=== PATIENT | female | born 1980 | race Two or more races ===

== ENCOUNTER → 2020-05-26 | Outpatient (CLI) | payer OTHER ==
[~2020-05-26] MED LIST: DOCU10CA PO; FOLI1TAB11 PO; IBUP80TA PO; IRON65TA PO; MAPA500T2 PO; PNV-CAP5 PO; VITAPRTA PO
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
== END ==
LOC: M PAIN 13:00
PROVIDERS: ATTEND Family Medicine
DX: M54.2 Cervicalgia (principal); F32.9 Major depressive disorder, single episode, unspecified; F41.9 Anxiety disorder, unspecified; F43.10 Post-traumatic stress disorder, unspecified; J30.9 Allergic rhinitis, unspecified; M54.5 Low back pain; Z79.899 Other long term (current) drug therapy

== ENCOUNTER 2021-06-15 09:44 | Day surgery (SDC) | payer OTHER ==
[~2021-06-15] VITALS: Ht 170.2 cm; Wt 80.3 kg
[~2021-06-15 09:44] MED LIST changes: +D31000CA4 PO; +EFFE150C2 PO; +EFFE75CA2 PO; +FLUTISP; +LINZ290C PO; +PRAZ5CAP PO
--- OUTSIDE RECORDS SUMMARY | 2021-06-15 09:51 | CCD | Continuity of Care Document ---
Author Author Michell CROWE M.D. Organization Unknown Address [address] [place] [id number] Phone [phone] Problems Active Problems Provider Date Migraine without aura, not refractory Kevin Crowe M.D. On set: 10/17/2020 Chronic tension-type headache Kevin Crowe M.D. Onset: 12/2020 Neck pain Kevin Crowe M.D. Onset: 10/17/2020 Spondylolysis of cervical spine Kevin Crowe M.D. Onset: 0 10/17/2020 Lesion of ulnar nerve Kevin Crowe M.D. Onset: 10/17/2020 Social History Type Date Description Comments Sex Unknown Tobacco Use Start: Unknown Patient has never smoked Allergies and adverse reactions Description No Known Drug Allergies Medications Active Medications SIG Qnty Indications Ordering Provide r Date Sumatriptan Succinate 6mg/0.5ML Solution Auto-Inject inject 6 mg sc at onset of migraine, may repeat once after 2 hrs. 3ml Kevin Crowe M.D. 05/24/2021 Sumatriptan Succinate 6mg/0.5ML Solution Auto-Inject supply 1 autoinjector 1units Kevin Crowe M.D. History Medications No Active Medications Unknown 05/2021 - 05/24/2021 Immunizations Description No Information Available Vital Signs Date Vital Result Comment 10/17/2020 10:24am BP Systolic 140 mmHg BP Diastolic 80 mmHg Heart Rate 78 /min Respiratory Rate 14 /min Height 68 inches 5'8" Weight 187.00 lb BMI (Body Mass Index) 28.4 kg/m2 Slaughters Body Weight 140 lb Results Description No Information Available Procedures Date Code Description Status 05/24/2021 41522 Office/Outpatient Established Lo w MDM 20-29 Min Completed 01/04/2021 84685 Office/Outpatient Established Lo w MDM 20-29 Min Completed Medical Devices Description No Information Available Encounters Type Date Location Provider Dx Diagnosis Office Visit 05/24/2021 2:30p [facility] Maryan Montejo G43.009 Migraine w/o aura, not intractable, w/o status migrainosus G44.229 Chronic tension-type headach e, not intractable M54.2 Cervicalgia M43.02 Spondylolysis, cervical brandon on Office Visit 01/04/2021 1:45p [facility] Maryan Montejo G43.009 Migraine w/o aura, not intractable, w/o status migrainosus G44.229 Chronic tension-type headach e, not intractable M54.2 Cervicalgia M43.02 Spondylolysis, cervical brandon on Assessments Date Code Description Provider 05/24/2021 G43.009 Migraine without aur a, not intractable, without status migrainosus Kevin Crowe M.D. 05/24/2021 G44.229 Chronic tension-type headache, n ot intractable Kevin Crowe M.D. 05/24/2021 M54.2 Cervicalgia Kevin Crowe M.D. 05/24/2021 M43.02 Spondylolysis, cervical region Marley Crowe M.D. 01/04/2021 G43.009 Migraine without aur a, not intractable, without status migrainblair Crowe M.D. 01/04/2021 G44.229 Chronic tension-type headache, n ot intractable Kevin Crowe M.D. 01/04/2021 M54.2 Cervicalgia Kevin Crowe M.D. 01/04/2021 M43.02 Spondylolysis, cervical region Marley Crowe M.D. Plan of Treatment Future Appointment(s):* 08/28/2021 2:30 pm - Kevin Crowe M.D. at [facility] * 07/26/2021 2:00 pm - Kevin Crowe M.D. at [facility] Functional Status Description No Information Available Mental Status Description No Information Available Referrals Description No Information Available
--- OUTSIDE RECORDS SUMMARY | 2021-06-15 09:52 | CCD ---
Author Author [facility] Organization [facility] Address Unknown Phone Unavailable Care Team Providers Care Sports Development Officer Name Role Phone Nani, Jenniferspike Khan GENERAL PRODUCTION WORKER-C Unavailable Unavailabl e Nani, [facility] Erin GENERAL PRODUCTION WORKER-C Unavailable Unavailabl e Nani, [facility] Erin GENERAL PRODUCTION WORKER-C Unavailable Unavailabl e Nani, [facility] Erin GENERAL PRODUCTION WORKER-C Unavailable Unavailabl e Nani, [facility] Erin GENERAL PRODUCTION WORKER-C Unavailable Unavailabl e Nani, [facility] Erin GENERAL PRODUCTION WORKER-C Unavailable Unavailabl e Nani, [facility] Erin GENERAL PRODUCTION WORKER-C Unavailable Unavailabl e Nani, [facility] Erin GENERAL PRODUCTION WORKER-C Unavailable Unavailabl e Nani, [facility] Erin GENERAL PRODUCTION WORKER-C Unavailable Unavailabl e Nani, [facility] Erin GENERAL PRODUCTION WORKER-C Unavailable Unavailabl e Nani, [facility] Khan GENERAL PRODUCTION WORKER-C Unavailable Unavailabl e Nani, [facility] Erin GENERAL PRODUCTION WORKER-C Unavailable Unavailabl e Nani, [facility] Erin GENERAL PRODUCTION WORKER-C Unavailable Unavailabl e Nani, [facility] Erin GENERAL PRODUCTION WORKER-C Unavailable Unavailabl e Nani, [facility] Erin GENERAL PRODUCTION WORKER-C Unavailable Unavailabl e Nani, Belkys Roye GENERAL PRODUCTION WORKER-C Unavailable Unavailabl e Nani, Belkys Roye GENERAL PRODUCTION WORKER-C Unavailable Unavailabl e Nani, Belkys Dillonyce GENERAL PRODUCTION WORKER-C Unavailable Unavailabl e Nani, Regcésar Dillonyce GENERAL PRODUCTION WORKER-C Unavailable Unavailabl e Nani, Belkys Dillonyce GENERAL PRODUCTION WORKER-C Unavailable Unavailabl e Nani, Belkys Dillonyce GENERAL PRODUCTION WORKER-C Unavailable Unavailabl e Nani, Regcésar Dillonyce GENERAL PRODUCTION WORKER-C Unavailable Unavailabl e Nani, Regcésar Dillonyce GENERAL PRODUCTION WORKER-C Unavailable Unavailabl e Nani, Belkys Dillonyce GENERAL PRODUCTION WORKER-C Unavailable Unavailabl e Nani, Belkys Dillonyce GENERAL PRODUCTION WORKER-C Unavailable Unavailabl e Nani, Belkys Dillonyce GENERAL PRODUCTION WORKER-C Unavailable Unavailabl e Nani, Belkys Khan GENERAL PRODUCTION WORKER-C Unavailable Unavailabl e Nani, Belkys Dillonyce GENERAL PRODUCTION WORKER-C Unavailable Unavailabl e Nani, Belkys Dillonyce GENERAL PRODUCTION WORKER-C Unavailable Unavailabl e Nani, Belkys Dillonyce GENERAL PRODUCTION WORKER-C Unavailable Unavailabl e Nani, Belkys Dillonyce GENERAL PRODUCTION WORKER-C Unavailable Unavailabl e Nani, Belkys Dillonyce GENERAL PRODUCTION WORKER-C Unavailable Unavailabl e IMELDA, CLARITA COLE Unavailable Unavailable REINNADJA, CLARITA COLE Unavailable Unavailable REINDL, CLARITA COLE Unavailable Unavailable REINDL, CLARITA COLE Unavailable Unavailable REINDL, CLARITA COLE Unavailable Unavailable REINDL, CLARITA COLE Unavailable Unavailable REINDL, CLARITA COLE Unavailable Unavailable REINDL, CLARITA COLE Unavailable Unavailable REINDL, CLARITA COLE Unavailable Unavailable REINDL, CLARITA COLE Unavailable Unavailable REINNADJA, CLARITA COLE Unavailable Unavailable REINDL, CLARITA COLE Unavailable Unavailable REINDL, CLARITA COLE Unavailable Unavailable REINDL, CLARITA COLE Unavailable Unavailable REINDL, CLARITA COLE Unavailable Unavailable REINDL, CLARITA COLE Unavailable Unavailable REINNADJA, CLARITA COLE Unavailable Unavailable REINNADJA, CLARITA COLE Unavailable Unavailable REINNADJA, CLARITA COLE Unavailable Unavailable REINDL, CLARITA COLE Unavailable Unavailable REINDL, CLARITA COLE Unavailable Unavailable REINDL, CLARITA COLE Unavailable Unavailable REINDL, CLARITA COLE Unavailable Unavailable REINDL, CLARITA COLE Unavailable Unavailable REINDL, CLARITA COLE Unavailable Unavailable REINDL, CLARITA COLE Unavailable Unavailable REINDL, CLARITA COLE Unavailable Unavailable REINDL, LCARITA COLE Unavailable Unavailable REINDL, CLARITA COLE Unavailable Unavailable REINDL, CLARITA COLE Unavailable Unavailable REINDL, CLARITA COLE Unavailable Unavailable REINDL, CLARITA COLE Unavailable Unavailable REINDL, CLARITA COLE Unavailable Unavailable REINDL, CLARITA COLE Unavailable Unavailable REINDL, CLARITA COLE Unavailable Unavailable REINDL, CLARITA COLE Unavailable Unavailable REINDL, CLARITA COLE Unavailable Unavailable REINDL, CLARITA COLE Unavailable Unavailable REINDL, CLARITA COLE Unavailable Unavailable REINDL, CLARITA COLE Unavailable Unavailable REINDL, CLARITA COLE Unavailable Unavailable REINDL, CLARITA COLE Unavailable Unavailable AliKevin MD Unavailable Unavailable Kevin Fortune MD Unavailable Unavailable Kevin Fortune MD Unavailable Unavailable Kevin Fortune MD Unavailable Unavailable AliKevin MD Unavailable Unavailable AliKevin MD Unavailable Unavailable Ali, Kevin COLE Unavailable Unavailable Ali, Kevin COLE Unavailable Unavailable Ali, Kevin COLE Unavailable Unavailable Ali, Kevin COLE Unavailable Unavailable Ali, Kevin COLE Unavailable Unavailable AliKevin MD Unavailable Unavailable AliKevin MD Unavailable Unavailable AliKevin MD Unavailable Unavailable AliKevin MD Unavailable Unavailable AliKevin MD Unavailable Unavailable AliKevin MD Unavailable Unavailable Ali, Kevin COLE Unavailable Unavailable Ali, Kevin COLE Unavailable Unavailable AliKevin MD Unavailable Unavailable AliKevin MD Unavailable Unavailable AliKevin MD Unavailable Unavailable AliKevin MD Unavailable Unavailable AliKevin MD Unavailable Unavailable AliKevin MD Unavailable Unavailable AliKevin MD Unavailable Unavailable AliKevin MD Unavailable Unavailable AliKevin MD Unavailable Unavailable AliKevin MD Unavailable Unavailable AliKevin MD Unavailable Unavailable AliKevin MD Unavailable Unavailable Kevin Fortune MD Unavailable Unavailable Kevin Fortune MD Unavailable Unavailable Kevin Fortune MD Unavailable Unavailable AliKevin MD Unavailable Unavailable AliKevin MD Unavailable Unavailable AliKevin MD Unavailable Unavailable AliKevin MD Unavailable Unavailable Kevin Fortune MD Unavailable Unavailable AliKevin MD Unavailable Unavailable AliKevin MD Unavailable Unavailable Kevin Fortune MD Unavailable Unavailable Kevin Fortune MD Unavailable Unavailable Kevin Fortune MD Unavailable Unavailable Kevin Fortune MD Unavailable Unavailable Kevin Fortune MD Unavailable Unavailable Kevin Fortune MD Unavailable Unavailable Kevin Fortune MD Unavailable Unavailable Kevin Fortune MD Unavailable Unavailable Kevin Fortune MD Unavailable Unavailable Kevin Fortune MD Unavailable Unavailable Kevin Fortune MD Unavailable Unavailable ALATORRE, [facility] Unavailable Unavailable Surekha Miles Unavailable Surekha Miles Unavailable DARVIN, DAVID CHAPARRO PA-C Unavailable Unavailable DARVIN, DAVID CHAPARRO PA-C Unavailable Unavailable DARVIN, DAVID CHAPARRO PA-C Unavailable Unavailable DARVIN, DAVID CHAPARRO PA-C Unavailable Unavailable DARVIN, DAVID CHAPARRO PA-C Unavailable Unavailable DARVIN, DAVID CHAPARRO PA-C Unavailable Unavailable DARVIN, DAVID CHAPARRO PA-C Unavailable Unavailable DARVIN, DAVID CHAPARRO PA-C Unavailable Unavailable DARVIN, DAVID CHAPARRO PA-C Unavailable Unavailable DARVIN, DAVID CHAPARRO PA-C Unavailable Unavailable PETERSON, ZAINA OCTOBER Unavailable Unavailable WASSERMANDC Unavailable Unavailable Re-disclosure Warning The records that you are about to access may contain information from federally-assisted alcohol or drug abuse programs. If such information is present, then the following federally mandated warning applies: This information has been disclosed to you from records protected by federal confidentiality rules (42 CFR part 2). The federal rules prohibit you from making any further disclosure of this information unless further disclosure is expressly permitted by the written consent of the person to whom it pertains or as otherwise permitted by 42 CFR part 2. A general authorization for the release of medical or other information is NOT sufficient for this purpose. The Federal rules restrict any use of the information to criminally investigate or prosecute any alcohol or drug abuse patient.The records that you are about to access may contain highly sensitive health information, the redisclosure of which is protected by Article 27-F of the [facility] Public Health law. If you continue you may have access to information: Regarding HIV / AIDS; Provided by facilities licensed or operated by the [facility] Office of Mental Health; or Provided by the [facility] Office for People With Developmental Disabilities. If such information is present, then the following [facility] mandated warning applies: This information has been disclosed to you from confidential records which are protected by state law. State law prohibits you from making any further disclosure of this information without the specific written consent of the person to whom it pertains, or as otherwise permitted by law. Any unauthorized further disclosure in violation of state law may result in a fine or senior living sentence or both. A general authorization for the release of medical or other information is NOT sufficient authorization for further disc losure. Encounters Encounter Providers Location Date Indications Data Source(s ) Outpatient Attender: Surekha Miles 06/05/2021 02:30:00 PM [facility] Outpatient Attender: Surekha Miles 05/30/2021 11:00:00 AM [facility] Outpatient Attender: Erin HARTMANN 05/30/2021 10:00:0 0 AM [facility] Outpatient Attender: Surekha Miles 05/25/2021 02:00:00 PM [facility] Outpatient Attender: Kevin Fortune MD Main office - [place] 05/24/2021 01:30:00 PM [facility] ([facility], ) Outpatient Attender: Erin HARTMANN 04/25/2021 10:00:0 0 AM [facility] Outpatient Attender: CHAPARRO BOSTON PA-C 03/29/2021 02:16:00 PM [facility] Admission cancelled. Disregard status an d admitted date. Outpatient Attender: CHAPARRO BOSTON PA-C 03/23/2021 10:00:00 AM [facility] Outpatient Attender: CHAPARRO BOSTON PA-C 03/22/2021 09:12:00 AM [facility] Outpatient Attender: CHAPARRO BOSTON PA-C 03/21/2021 08:02:00 AM [facility] Outpatient Attender: CHAPARRO BOSTON PA-C 03/20/2021 11:12:00 AM [facility] Outpatient Attender: CHAPARRO BOSTON PA-C 03/16/2021 09:42:00 AM [facility] Admission cancelled. Disregard status an d admitted date. Outpatient Attender: CHAPARRO BOSTON PA-C 03/15/2021 08:36:00 AM [facility] Outpatient Attender: CHAPARRO BOSTON PA-C 03/14/2021 11:26:00 AM [facility] Outpatient Attender: CHAPARRO BOSTON PA-C 03/13/2021 11:42:00 AM [facility] Outpatient Attender: CHAPARRO BOSTON PA-C 03/12/2021 07:54:00 AM [facility] Outpatient Attender: CHAPARRO BOSTON PA-C 03/09/2021 08:20:00 AM [facility] Outpatient Attender: CHAPARRO BOSTON PA-C 03/08/2021 07:47:00 AM [facility] Outpatient Attender: CHAPARRO BOSTON PA-C 03/07/2021 09:31:00 AM [facility] Outpatient Attender: CLARITA Berrios/Nichol villalobos 03/06/2021 10:30:[address] [facility], ) Outpatient Attender: CHAPARRO BOSTON PA-C 03/05/2021 10:29:00 AM [facility] Outpatient Attender: CHAPARRO BOSTON PA-C 03/02/2021 04:05:00 PM [facility] Outpatient Attender: CHAPARRO BOSTON PA-C 03/01/2021 10:00:00 AM [facility] Outpatient Attender: CHAPARRO BOSTON PA-C 02/28/2021 10:00:00 AM [facility] Admission cancelled. Disregard status an d admitted date. Outpatient Attender: CHAPARRO BOSTON PA-C 02/27/2021 10:37:00 AM [facility] Outpatient Attender: CHAPARRO BOSTON PA-C 02/26/2021 10:59:00 AM [facility] Outpatient Attender: CHAPARRO BOSTON PA-C 02/21/2021 01:50:00 PM [facility] Outpatient Attender: CHAPARRO BOSTON PA-C 02/20/2021 11:02:00 AM [facility] Outpatient Attender: CHAPARRO BOSTON PA-C 02/19/2021 11:38:00 AM [facility] Outpatient Attender: CHAPARRO BOSTON PA-C 02/16/2021 11:23:00 AM [facility] Outpatient Attender: CHAPARRO BOSTON PA-C 02/15/2021 12:05:00 PM [facility] Outpatient Attender: CHAPARRO BOSTON PA-C 02/14/2021 11:00:00 AM [facility] Outpatient Attender: CHAPARRO BOSTON PA-C 02/13/2021 11:00:00 AM [facility] Outpatient Attender: CHAPARRO BOSTON PA-C 02/12/2021 11:28:00 AM [facility] Outpatient Attender: CHAPARRO BOSTON PA-C 02/09/2021 11:31:00 AM [facility] Outpatient Attender: CHAPARRO BOSTON PA-C 02/08/2021 11:13:00 AM [facility] Outpatient Attender: CHAPARRO BOSTON PA-C 02/07/2021 11:27:00 AM [facility] Outpatient Attender: CHAPARRO BOSTON PA-C 02/06/2021 11:29:00 AM [facility] Outpatient Attender: CHAPARRO BSOTON PA-C 02/05/2021 11:27:00 AM [facility] Outpatient Attender: CHAPARRO BOSTON PA-C 02/02/2021 10:56:00 AM [facility] Outpatient Attender: CHAPARRO BOSTON PA-C 02/01/2021 11:50:00 AM [facility] Outpatient Attender: CHAPARRO BOSTON PA-C 01/31/2021 12:40:00 PM [facility] Outpatient Attender: CHAPARRO BOSTON PA-C 01/30/2021 11:06:00 AM [facility] Outpatient Attender: CHAPARRO BOSTON PA-C 01/29/2021 10:37:00 AM [facility] Outpatient Attender: CHAPARRO BOSTON PA-C 01/26/2021 11:32:00 AM [facility] Outpatient Attender: CHAPARRO BOSTON PA-C 01/25/2021 10:33:00 AM [facility] Outpatient Attender: CHAPARRO BOSTON PA-C 01/24/2021 11:19:00 AM [facility] Outpatient Attender: CHAPARRO BOSTON PA-C 01/23/2021 11:17:00 AM [facility] Outpatient Attender: CHAPARRO BOSTON PA-C 01/22/2021 12:23:00 PM [facility] Outpatient Attender: Kevin Fortune MD Main office - [place] 01/04/2021 01:45:00 PM [facility] ) Outpatient Attender: CHAPARRO BOSTON PA-C 12/29/2020 12:19:00 PM [facility] Outpatient Attender: CHAPARRO BOSTON PA-C 12/21/2020 11:18:00 AM [facility] Outpatient Attender: October 02:05:52 PM EDT - 11/21/2020 09:33:[address] [facility] Patient discharged. Outpatient Attender: Kevin Fortune MD Main office - [place] 10/17/2020 10:00:00 AM EDT [facility] ([facility], ) Outpatient Attender: DC WASSERMANConsultant: [facility]E 09/20/2020 01:57:00 PM EST - 09/20/2020 02:57:[address] [facility] Patient discharged. Outpatient Attender: Erin HARTMANN 06/01/2020 01:00:0 0 PM [facility] Outpatient Attender: Erin ADAME-Mikael 05/31/2020 01:00:0 0 PM [facility] Outpatient [address] [address] 05/26/2020 12:00:00 AM EST eCW1 ([facility]) Medications Medication Brand Name Start Date Product Form Dose Route Admi nistrative Instructions Pharmacy Instructions Status Indications Reaction Description Data Source(s) 0.5 ML Sumatriptan 12 MG/ML Auto-Injector Sumatriptan Succin ate 05/24/2021 12:00:00 AM EST active M [facility] ([facility], ) No Active Medications 05/24/2021 12:00:00 AM EST completed [facility] ([facility], ) 0.5 ML Sumatriptan 12 MG/ML Auto-Injector Sumatriptan Succin ate 05/24/2021 12:00:00 AM EST active [facility] ([facility], ) linaclotide 0.29 MG Oral Capsule [Linzess] Linzess 03/06/2021 12:00:00 AM EDT ORAL active [facility] ([facility], ) Omeprazole 40 MG Delayed Release Oral Capsule Omeprazole 03/06/2021 12:00:00 AM EDT ORAL active [facility] ([facility], ) POLYETHYLENE GLYCOL 3350 142 MG/ML Oral Solution [Miralax] M iralax 03/06/2021 12:00:00 AM EDT active M [facility] ([facility], ) magnesium citrate 58.2 MG/ML Oral Solution Magnesium Citrate 03/06/2021 12:00:00 AM EDT active [facility] ([facility], ) Sumatriptan 100 MG Oral Tablet Sumatriptan Succinate 10/17/2020 12:00:00 AM EDT ORAL active [facility] ( [facility], ) Ibuprofen 800 MG Oral Tablet Ibuprofen 10/17/2020 12:00:00 AM EDT ORAL active [facility] ([facility], ) gabapentin 100 MG Oral Capsule Gabapentin 100 MG Gabapentin 100 MG 05/26/2020 12:00:00 AM EST 1.0 {capsule} active G abapentin 100 MG eCW1 ([facility]) gabapentin 300 MG Oral Capsule Gabapentin 300 MG Gabapentin 300 MG 05/26/2020 12:00:00 AM EST 1.0 {capsule} active G abapentin 300 MG eCW1 ([facility]) Insurance Providers Payer name Policy type / Coverage type Policy ID Covered democrat ID Covered democrat's relationship to main Policy Main Plan Information ACTIVE DUTY [id number] SP [id number] [facility] [id number] S [id number] [facility] [id number] S [id number] [facility] [id number] SP [id number] [facility] ACTIVE DUTY [id number] SP [id number] [facility] HUMANA - O/P [id number] 18 [id number] [facility] [id number] S [id number] SELF PAY ONLY [id number] SP [id number] Problems, Conditions, and Diagnoses Code Display Name Description Problem Type Effective Dates Data Source(s) Z12.11 Encounter for screening for malignant ne oplasm of colon ENCOUNTER FOR SCREENING FOR MALIGNANT NEOPLASM OF COLON Diagnosis 04/25/2021 10:00:0 0 AM T [facility] F43.10 Post-traumatic stress disorder, unspecif ied POST-TRAUMATIC STRESS DISORDER, UNSPECIFIED Diagnosis 03/23/2021 10:00:00 [facility] Ill-defined and unknown cause of mortali ty Ill-defined and unknown cause of mortality Diagnosis 11/21/2020 09:33:[address] [facility] [id number] Migraine with aura, not intractable, wit hout status migrainosus Migraine with aura, not intractable, without status migrainosus Diagnosis 09/20/2020 01:57:00 PM [facility] J01.21 Acute recurrent ethmoidal sinusitis ACUTE RECURR ENT ETHMOIDAL SINUSITIS Diagnosis 06/01/2020 01:00:00 PM [facility] G56.23 Lesion of ulnar nerve Lesion of ulnar nerve Problem 10/17/2020 12:00:00 AM EDT [facility] ([facility], ) 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 Spondylolysis of cervi marcelino spine Problem 10/17/2020 12:00:00 AM EDT [facility] ([facility], ) M54.2 Neck pain Neck pain Problem 10/17/2020 12:00:00 AM ED T [facility] ([facility], ) G44.229 Chronic tension-type headache Chronic tension-type hea dache Problem 10/17/2020 12:00:00 AM EDT [facility] ([facility], ) G43.009 Migraine without aura, not refractory Mi graine without aura, not refractory Problem 10/17/2020 12:00:00 AM EDT [facility] ([facility], ) Surgeries/Procedures Procedure Description Date Indications Data Source(s) OFFICE OUTPATIENT VISIT 15 MINUTES 05/24/2021 12:00:00 AM EST [facility] ([facility], ) OFFICE OUTPATIENT NEW 45 MINUTES 03/06/2021 12:00:00 A M EDT [facility] ([facility], ) OFFICE OUTPATIENT VISIT 15 MINUTES 01/04/2021 12:00:00 AM EDT [facility] ([facility], ) Needle electromyography, each extremity, with related paraspinal areas, when performed, done with nerve conduction, amplitude and latency/velocity study; complete, five or more muscles studied, innervated by three or more nerves or four or more spinal levels (list separately in addition to the code for primary procedure). 10/23/2020 12:00:00 AM EDT MED[facility] T ([facility], ) Needle electromyography, each extremity, with related paraspinal areas, when performed, done with nerve conduction, amplitude and latency/velocity study; complete, five or more muscles studied, innervated by three or more nerves or four or more spinal levels (list separately in addition to the code for primary procedure). 10/23/2020 12:00:00 AM EDT RIK Sanchez ([facility], ) Nerve Conduction 9-10 Studies 10/23/2020 12:00:00 AM E DT MARINE ([facility], ) OFFICE OUTPATIENT NEW 45 MINUTES 10/17/2020 12:00:00 A M EDT [facility]MACIEJ ([facility], ) Results ID Date Data Source [id number] 06/11/2021 10:46:00 AM EST [facility] Name Value Range Interpretation Code Description Data Asha rce(s) Supporting Document(s) SARS coronavirus 2 RNA Not Detected [facility] This lab was ordered by [facility] and reported by [facility]. ID Date Data Source [id number] 11/30/2020 12:00:00 AM EDT [facility] Name Value Range Interpretation Code Description Data Asha rce(s) Supporting Document(s) SARS-CoV2 Rapid Antigen Negative [facility] This lab was reported by Pauline Hsu. ID Date Data Source [id number] 09/22/2020 08:56:00 [place] [address] PHONE: [phone] FAX: [phone] Name .................. : DIONNE GARZON Kelly Acct Number.................. : [id number] ROOM. ................. : MR Number ................... : [id number] Stay type ............. : O/P Discharge Date......... ... : 09/20/20 Admit Date ......... : 09/20/20 Admit Phys .................... : LISY Prakash Date of ....... : 1980 Family Phys ................... : UNKNOWN Phone .................. : [phone] Age ................................ : 40 Film# .................. .:[id number] Sex ................................. : F Unsigned transcriptions are preliminary reports and do not represent a medical or legal document MRI BRAIN W/O CONTRAST [id number] COMPLETE:09/20/20 14:33 [facility] 5993 (REASON FOR PROCEDURE SEVERE UNILATERAL HEADACHE MRI OF THE BRAIN WITHOUT CONTRAST: INDICATION: Severe unilateral headache for 11 years that is getting worse over time. FINDINGS: The cortical sulci and ventricles are normal in size and position. There is no acute hemorrhage, infarct, mass effect or midline shift. On T2 and FLAIR images, there are mild nodular nonspecific white matter changes mainly in the bilateral frontal lobes w ith nearly symmetrical distribution in terms of number of lesions. The findings could represent vascular disease, foci of migrainous activity, small vessel ischemic changes or other etiologies not excluded. The midline structures including the corpus callosum, pituitary gland and craniocervical junction are normal. There is no acute osseous abnormality. The paranasal sinuses and mastoid air cells are clear. The visualized orbits are unremarkable. IMPRESSION: 1. Mild nonspecific white matter changes in the bilateral frontal lobes. 2. No acute intracranial abnormality. Electronically Reviewed and Signed By Tyrone Butler M.D. , 09/22/20 08:56, OKY Page 1 of 2 [facility] [address] [place] [address] PHONE: [phone] FAX: [phone] Name .................. : DIONNE GARZON I Acct Number.................. : [id number] ROOM. ................. : MR Number ................... : [id number] Stay type ............. : O/P Discharge Date......... ... : 09/20/20 Admit Date ......... : 09/20/20 Admit Phys .................... : LISY Prakash Date of ....... : 1980 Family Phys ................... : UNKNOWN Phone .................. : [phone] Age ................................ : 40 Film# .................. .:[id number] Sex ................................. : F Unsigned transcriptions are preliminary reports and do not represent a medical or legal document MRI BRAIN W/O CONTRAST [id number] COMPLETE:09/20/20 14:33 [facility] [id number] (REASON FOR PROCEDURE SEVERE UNILATERAL HEADACHE Transcribe Initials: MELVIN , Transcribe Date: 09/21/20 00:11, Dictation Date: Copy for: LISY IRWIN via fax Copy for: 710 MED REC Page 2 of 2 Name Value Range Interpretation Code Description Data Asha rce(s) Supporting Document(s) Procedure Social History Code Duration Value Status Description Data Source(s ) Smoking 05/26/2020 12:00:00 AM EST Never Smoker completed Never S debi eCW1 ([facility]) Vital Signs ID Date Data Source UNK Name Value Range Interpretation Code Description Data Source(s) Systolic blood pressure 156 mm[Hg] 156 mm[Hg] Marley MIN ([facility]) Diastolic blood pressure 88 mm[Hg] 88 mm[Hg] MEDENT ([facility]) Body height 67 [in_i] 67 [in_i] MEDENT ([facility]) 5'7" Body weight 200.00 [lb_av] 200.00 [lb_av] MEDEN T ([facility]) Body mass index (BMI) [Ratio] 31.3 kg/m2 31.3 k g/m2 MEDENT ([facility]) [place] body weight 135 [lb_av] 135 [lb_av] MEDEN T ([facility]) Body weight 90.720 kg 90.720 kg [facility] ([facility]) Body surface area Derived from formula 2.02 m2 2.02 m2 [facility] ([facility]) Systolic blood pressure 140 mm[Hg] 140 mm[Hg] M EDENT ([facility]) Diastolic blood pressure 80 mm[Hg] 80 mm[Hg] MEDENT ([facility]) Heart rate 78 /min 78 /min MEDENT ([facility]) Respiratory rate 14 /min 14 /min MEDENT ( [facility]) Body height 68 [in_i] 68 [in_i] MEDENT ([facility]) 5'8" Body weight 187.00 [lb_av] 187.00 [lb_av] MEDEN T ([facility]) Body mass index (BMI) [Ratio] 28.4 kg/m2 28.4 k g/m2 MEDENT ([facility]) [place] body weight 140 [lb_av] 140 [lb_av] MEDEN T ([facility]) Body weight 193.8 [lb_av] 193.8 [lb_av] eCW1 ([facility]) Body height 67 [in_i] 67 [in_i] eCW1 ([facility]) Body mass index (BMI) [Ratio] 30.35 kg/m2 30.35 kg/m2 eCW1 ([facility]) Heart rate 86 /min 86 /min eCW1 [facility] Respiratory rate 18 /min 18 /min eCW1 ([facility]) Body temperature 97.6 [degF] 97.6 [degF] eCW1 ( [facility]) Systolic blood pressure 145 mm[Hg] 145 mm[Hg] e CW1 ([facility]) Diastolic blood pressure 88 mm[Hg] 88 mm[Hg] eCW1 ([facility]) Patient Treatment Plan of Care Planned Activity Planned Date Details Description Data Source (s) gabapentin 100 MG Oral Capsule 05/26/2020 12:00:00 AM EST eCW1 ([facility]) gabapentin 300 MG Oral Capsule 05/26/2020 12:00:00 AM EST eCW1 ([facility])
[2021-06-15] MEDS ORDERED: NS 1,000 ML IV ONE (10:10)
[2021-06-15] MEDS ORDERED: propofoL 200 MG/20 ML VIAL As Ordered ONE ×3 (10:46→11:01)
[2021-06-15] MEDS ORDERED: GLYCOPYRROLATE INJ 0.2 MG/ML 2 ML VIAL As Ordered ONE (10:46)
[2021-06-15] MEDS ORDERED: LIDOCAINE 2% 100MG/5ML SDV (FOR ANES.) As Ordered ONE (10:46)
--- NOTE | 2021-06-15 11:07 | ROOR ---
Patient Name: Michell May Procedure Date: 06/15/2021 10:53 AM Date of : 1980 Age: 40 Room: [facility] Gender: Female Note Status: Finalized Procedure: Upper GI endoscopy Indications: Heartburn Providers: Luke Perera MD Referring MD: LANDRY ALATORRE MD Requesting Provider: Medicines: Monitored Anesthesia Care Complications: No immediate complications. Procedure: Pre-Anesthesia Assessment: - The heart rate, respiratory rate, oxygen saturations, blood pressure, adequacy of pulmonary ventilation, and response to care were monitored throughout the procedure. The Endoscope was introduced through the mouth, and advanced to the second part of duodenum. The upper GI endoscopy was accomplished without difficulty. The patient tolerated the procedure well. Findings: The esophagus was normal. The stomach was normal. The examined duodenum was normal. Impression: - Normal esophagus. - Normal stomach. - Normal examined duodenum. - No specimens collected. Recommendation: - Follow an antireflux regimen. - Observe patient's clinical course. Procedure Code(s): --- Professional --- 85969, Esophagogastroduodenoscopy, flexible, transoral; diagnostic, including collection of specimen(s) by brushing or washing, when performed (separate procedure) Diagnosis Code(s): --- Professional --- R12, Heartburn CPT copyright 2019 [employer]. All rights reserved. The codes documented in this report are preliminary and upon centerless grinder review may be revised to meet current compliance requirements. Luke Perera MD Luke Perera MD 06/15/2021 11:07:31 AM Electronically signed by Luke Perera MD Number of Addenda: 0 Note Initiated On: 06/15/2021 10:53 AM Estimated Blood Loss: Estimated blood loss: none.
--- NOTE | 2021-06-15 11:23 | ROOR ---
Patient Name: Michell May Procedure Date: 06/15/2021 10:54 AM Date of : 1980 Age: 40 Room: [facility] Gender: Female Note Status: Finalized Procedure: Colonoscopy Indications: Irritable bowel syndrome with constipation Providers: Luke Perera MD Referring MD: LANDRY ALATORRE MD Requesting Provider: Medicines: Monitored Anesthesia Care Complications: No immediate complications. Procedure: Pre-Anesthesia Assessment: - The heart rate, respiratory rate, oxygen saturations, blood pressure, adequacy of pulmonary ventilation, and response to care were monitored throughout the procedure. The Colonoscope was introduced through the anus and advanced to the terminal ileum, with identification of the appendiceal orifice and IC valve. The colonoscopy was performed without difficulty. The patient tolerated the procedure well. The quality of the bowel preparation was good. Findings: The perianal and digital rectal examinations were normal. The entire examined colon appeared normal on direct and retroflexion views. Impression: - The entire colon is normal on direct and retroflexion views. - No specimens collected. Recommendation: - Continue present medications. (linzess/trulance) Procedure Code(s): --- Professional --- 33460, Colonoscopy, flexible; diagnostic, including collection of specimen(s) by brushing or washing, when performed (separate procedure) Diagnosis Code(s): --- Professional --- K58.1, Irritable bowel syndrome with constipation CPT copyright 2019 [employer]. All rights reserved. The codes documented in this report are preliminary and upon doctor of audiology review may be revised to meet current compliance requirements. Luke Perera MD Luke Perera MD 06/15/2021 11:23:14 AM Electronically signed by Luke Perera MD Number of Addenda: 0 Note Initiated On: 06/15/2021 10:54 AM Estimated Blood Loss: Estimated blood loss: none.
[2021-06-15 11:48] VITALS: BP 127/71
== END 2021-06-15 11:51 | disposition home or self-care (01) ==
LOC: M OPP 09:44
PROVIDERS: ATTEND Internal Medicine Gastroenterology
DX: K58.1 Irritable bowel syndrome with constipation (principal); Z80.0 Family history of malignant neoplasm of digestive organs; R12 Heartburn; Z79.899 Other long term (current) drug therapy

== ENCOUNTER → 2022-02-27 | Outpatient (CLI) | payer OTHER | LOC: M CARPUL 10:32 | DX: R03.0 Elevated blood-pressure reading, without diagnosis of hypertension (principal) ==

== ENCOUNTER → 2022-08-23 | Outpatient (CLI) | payer OTHER | LOC: M PLAIMG 09:48 | PROVIDERS: ATTEND Plastic Surgery Surgery of the Hand | DX: T85.44XD Capsular contracture of breast implant, subsequent encounter (principal) ==

== ENCOUNTER 2022-11-18 17:48 | Emergency (ER) | payer OTHER ==
[~2022-11-18] VITALS: Ht 170.2 cm; Wt 86.4 kg
[~2022-11-18 17:48] MED LIST changes: +FLUT50SP17; -FLUTISP
[2022-11-18 18:53] LABS: BASO % 0.6 % (0.0-1.0); EOS # 0.3 10^3/uL (0.0-0.5); EOS % 4.4 % (0.0-3.0); HEMATOCRIT 40.1 % (36.0-47.0); LYMPH # 2.3 10^3/uL (1.5-5.0); LYMPH % 35.3 % (24.0-44.0); MEAN CORPUSCULAR HEMOGLOBIN 29.8 pg (27.0-33.0); MEAN CORPUSCULAR HGB CONC 32.4 g/dl (32.0-36.5); MONO # 0.6 10^3/uL (0.0-0.8); MONO % 8.6 % (2.0-8.0); NEUTROPHILS # 3.4 10^3/uL (1.5-8.5); NEUTROPHILS % 50.9 % (36.0-66.0); PLATELET COUNT, AUTOMATED 281 10^3/uL (150-450); RED BLOOD COUNT 4.36 10^6/uL (4.00-5.40); WHITE BLOOD COUNT 6.6 10^3/uL (4.0-10.0)
[2022-11-18 19:16] LABS: BLOOD UREA NITROGEN 7 MG/DL (9-23); CALCIUM LEVEL 9.7 MG/DL (8.5-10.1); CARBON DIOXIDE LEVEL 28 MMOL/L (20-31); CHLORIDE LEVEL 105 MMOL/L (98-107); CREATININE FOR GFR 0.67 MG/DL (0.55-1.30); GLOMERULAR FILTRATION RATE > 60.0 (>58); GLUCOSE, FASTING 94 MG/DL (60-100); POTASSIUM SERUM 4.4 MMOL/L (3.5-5.1); SODIUM LEVEL 137 MMOL/L (136-145)
[2022-11-18] MEDS ORDERED: KETOROLAC 30 MG/ML 1ML VIAL IV ONE (19:35)
[2022-11-18] MEDS ORDERED: METOCLOPRAMIDE INJ 10MG/2ML VIAL IV ONE (19:35)
[2022-11-18] MEDS ORDERED: NS 1,000 ML IV ONE (19:35)
[2022-11-18] MEDS ORDERED: diphenhydrAMINE 50MG/ML VIAL IV ONE (19:35)
[2022-11-18 22:23] VITALS: BP 171/97
== END 2022-11-18 22:51 | disposition home or self-care (01) ==
LOC: M ED 17:48
DX: G43.909 Migraine, unspecified, not intractable, without status migrainosus (principal); Z79.899 Other long term (current) drug therapy
CPT/HCPCS: 70450; 80048; 85025; 96374; 96375; 99284; J1200; J1885; J2765

== ENCOUNTER 2022-11-20 09:51 | Emergency (ER) | payer OTHER ==
[2022-11-20 09:51] VITALS: BP 142/91
[2022-11-20] MEDS ORDERED: SUMA50TA2 (10:01)
[2022-11-20 11:32] LABS: HEMATOCRIT 40.5 % (36.0-47.0); HEMOGLOBIN 13.4 g/dl (12.0-15.5); MEAN CORPUSCULAR HEMOGLOBIN 30.4 pg (27.0-33.0); MEAN CORPUSCULAR HGB CONC 33.1 g/dl (32.0-36.5); MEAN CORPUSCULAR VOLUME 91.8 fl (80.0-96.0); PLATELET COUNT, AUTOMATED 283 10^3/uL (150-450); RED BLOOD COUNT 4.41 10^6/uL (4.00-5.40); WHITE BLOOD COUNT 7.2 10^3/uL (4.0-10.0)
[2022-11-20] MEDS ORDERED: KETOROLAC 30 MG/ML 1ML VIAL IV ONE (11:35)
[2022-11-20] MEDS ORDERED: METOCLOPRAMIDE INJ 10MG/2ML VIAL IV ONE (11:35)
[2022-11-20] MEDS ORDERED: NS 1,000 ML IV ONE (11:35)
[2022-11-20 12:12] LABS: ATYPICAL LYMPH 4 % (0-5); BASOPHILS 1 % (0-1); EOSINOPHILS 2 % (0-3); LYMPHOCYTES 35 % (16-44); MONOCYTES 3 % (0-5); NEUTROPHILS 55 % (28-66)
[2022-11-20 12:16] LABS: PLATELET ESTIMATE NORMAL (NORMAL); TOXIC GRANULATION 1+
[2022-11-20] MEDS ORDERED: FIOR1CAP PO (15:04)
[2022-11-20] MEDS ORDERED: ALPRAZolam 0.5 MG TAB PO ONE (15:10)
== END 2022-11-20 15:17 | disposition home or self-care (01) ==
LOC: M ED 09:51
DX: R51.9 Headache, unspecified (principal); Z91.030 Bee allergy status; Z91.013 Allergy to seafood; Z79.899 Other long term (current) drug therapy
CPT/HCPCS: 85025; 96374; 96375; 99283; J1100; J1885; J2765

== ENCOUNTER → 2023-12-11 | Outpatient (REF) | payer OTHER ==
[~2023-12-11] MED LIST changes: -EFFE150C2 PO; +EFFE150C3 PO; +FIOR1CAP PO; -FLUT50SP17; +FLUTISP; +SUMA50TA2
[2023-12-11 16:43] LABS: APPEARANCE, URINE CLEAR (CLEAR); BACTERIA, URINE AUTO 1+ (NEGATIVE); BILIRUBIN, URINE AUTO NEGATIVE (NEGATIVE); BLOOD, URINE BLOOD 2+ (NEGATIVE); COLOR, URINE YELLOW (YELLOW); GLUCOSE, URINE (UA) AUTO NEGATIVE (NEGATIVE); KETONE, URINE AUTO NEGATIVE (NEGATIVE); LEUKOCYTE ESTERASE, URINE AUTO NEGATIVE (NEGATIVE); NITRITE, URINE AUTO NEGATIVE (NEGATIVE); PROTEIN, URINE AUTO NEGATIVE (NEGATIVE); RBC, URINE AUTO 1 /HPF (0-3); SPECIFIC GRAVITY URINE AUTO 1.009 (1.002-1.035); SQUAMOUS EPITHELIAL CELL UR AU 5 /HPF (0-6); UROBILINOGEN, URINE AUTO 0.2 mg/dL (0.0-2.0); WBC, URINE AUTO 2 /HPF (0-3)
[2023-12-11 16:49] LABS: BASO % 0.6 % (0.0-1.0); EOS # 0.3 10^3/uL (0.0-0.5); EOS % 5.8 % (0.0-3.0); HEMATOCRIT 37.8 % (36.0-47.0); HEMOGLOBIN 12.3 g/dl (12.0-15.5); LYMPH # 1.7 10^3/uL (1.5-5.0); LYMPH % 36.8 % (24.0-44.0); MEAN CORPUSCULAR HGB CONC 32.5 g/dl (32.0-36.5); MEAN CORPUSCULAR VOLUME 95.2 fl (80.0-96.0); MONO # 0.3 10^3/uL (0.0-0.8); MONO % 6.9 % (2.0-8.0); NEUTROPHILS # 2.3 10^3/uL (1.5-8.5); NEUTROPHILS % 49.7 % (36.0-66.0); PLATELET COUNT, AUTOMATED 312 10^3/uL (150-450); RED BLOOD COUNT 3.97 10^6/uL (4.00-5.40); WHITE BLOOD COUNT 4.6 10^3/uL (4.0-10.0)
[2023-12-11 16:54] LABS: C REACTIVE PROTEIN QUANTITATIV < 0.40 MG/DL (<1.0)
[2023-12-11 16:55] LABS: CPK CREATINE PHOSPHOKINASE 91 U/L (34-145); IRON (FE) 84 UG/DL (50-170); MAGNESIUM LEVEL 1.8 MG/DL (1.8-2.4); PHOSPHORUS LEVEL 2.7 MG/DL (2.5-4.9)
[2023-12-11 16:56] LABS: PERCENT SATURATION 24.7 % (13.2-45.0); TOTAL IRON BINDING CAPACITY 340 UG/DL (250-425)
[2023-12-11 16:57] LABS: COMPLEMENT C3 116.6 MG/DL (90.0-170.0); COMPLEMENT C4 24.6 MG/DL (12-36); ERYTHROCYTE SEDIMENTATION RATE 10 mm/hr (0-20)
[2023-12-11 16:59] LABS: TOTAL 25(OH) VITAMIN D 31.7 NG/ML (20.0-100.0); VITAMIN B12 LEVEL 676 PG/ML (211-911)
[2023-12-11 17:20] LABS: CREATININE,RANDOM URINE 56.4 MG/DL
[2023-12-11 17:21] LABS: TOTAL PROTEIN,RANDOM URINE < 6.0 MG/DL (0.0-14.0)
[2023-12-15 15:11] LABS: COMPLEMENT TOTAL (CH50) > 60 U/mL (>41)
== END ==
LOC: M SFHCRHEU 12:04
PROVIDERS: ATTEND Internal Medicine
DX: R76.8 Other specified abnormal immunological findings in serum (principal); M25.40 Effusion, unspecified joint; M79.10 Myalgia, unspecified site

== ENCOUNTER 2024-06-30 12:35 | Day surgery (SDC) | payer OTHER ==
[~2024-06-30] VITALS: Ht 170.2 cm; Wt 87.6 kg
[2024-06-30] MEDS ORDERED: LR 500 ML IV SCH (13:30)
[2024-06-30] MEDS: ceFAZolin SOD 2 GM in IV 1 EA IV ONE (14:35)
[2024-06-30] MEDS ORDERED: MIDAZOLAM INJ 2MG/2ML VIAL As Ordered ONE (14:36)
[2024-06-30] MEDS ORDERED: fentaNYL 100 MCG/2 ML INJECTION As Ordered ONE (14:36)
[2024-06-30] MEDS: LIDOCAINE 1% MDV 20ML VIAL As Ordered ONE (14:53)
[2024-06-30] MEDS ORDERED: propofoL 200 MG/20 ML VIAL As Ordered ONE (15:07)
[2024-06-30] MEDS ORDERED: ONDANSETRON 4MG 2ML VIAL As Ordered ONE (15:07)
[2024-06-30 15:25] VITALS: BP 148/99; TEMP 98.2; O2SAT 99
== END 2024-06-30 15:55 | disposition home or self-care (01) ==
LOC: M SDC 12:35
PROVIDERS: ATTEND Podiatrist Foot & Ankle Surgery
DX: M20.42 Other hammer toe(s) (acquired), left foot (principal); K58.9 Irritable bowel syndrome, unspecified; K21.9 Gastro-esophageal reflux disease without esophagitis; Z91.013 Allergy to seafood; Z91.030 Bee allergy status
CPT/HCPCS: 28285; 81025; J0665; J0690; J1100; J2250; J2405; J3010